=== PATIENT | male | born 1985 | race Caucasian/White ===

== ENCOUNTER 2020-10-03 20:43 | Emergency (ER) | payer MEDICAID, OTHER ==
--- NOTE | 2020-10-03 21:06 | EDM.PDOC ---
ED HPI GENERAL MEDICAL PROBLEM - General Stated Complaint: FISHHOOK IN HAND Time Seen by Provider: 10/03/20 21:02 Source of Information: Reports: Patient History Limitations: Reports: No Limitations - History of Present Illness INITIAL COMMENTS - FREE TEXT/NARRATIVE: Ha has a fish hook lodged in the right pinky finger. Review of Systems - Review of Systems Review Of Systems: Comprehensive ROS is negative, except as noted in HPI. ED EXAM, GENERAL - Physical Exam Exam: See Below Free Text/Narrative:: Fish hook ( with juancarlos-)noted right proximal phalanx ED TRAUMA EXTREMITY PROCEDURES - Foreign Body Removal Indication:: Fish hook Consent Obtained: Patient Performing Doctor:: Alcon Davidson Anesthesia Type: Local Anesthesia Other:: Local Findings:: Fish hook removed by 'shoe string' technique Complications:: No Departure - Departure Time of Disposition: 21:05 Disposition: Home, Self-Care 01 Condition: Good Clinical Impression: Fish hook injury of finger - Discharge Information - Problem List & Annotations (1) Fish hook injury of finger SNOMED Code(s): 29968982 Code(s): S69.90XA - UNSP INJURY OF UNSP WRIST, HAND AND FINGER(S), INIT ENCNTR Status: Acute Qualifiers: Encounter type: initial encounter Laterality: right Qualified Code(s): S69.91XA - Unspecified injury of right wrist, hand and finger(s), initial encounter - Problem List Review Problem List Initiated/Reviewed/Updated: Yes - Assessment/Plan Plan: Dtap given. Dressing ,wound care instructions
[2020-10-03] MEDS ORDERED: Diphtheria,Pertussis(Acell),Tetanus Vaccine 0.5 ML Syringe IM ONE (21:12)
[2020-10-03] MEDS ORDERED: Diphtheria,Pertussis(Acell),Tetanus Vaccine 0.5 ML Syringe ONE (21:12)
--- NOTE | 2020-10-15 08:20 | ER ---
DATE SEEN: 10/03/2020 ADDENDUM: PHYSICAL EXAMINATION: VITAL SIGNS: Blood pressure is 104/83, temperature is 97.6, pulse is 88. GENERAL: He is anxious and has odor of alcohol about him. EXTREMITIES: On the right pinky finger, he has barbed fish hook that is lodged in the middle phalanx. /[id number] JOSIE/CHARLEEN
== END 2020-10-03 21:35 | disposition home or self-care (01) ==
LOC: FB.ED 20:43
DX: S61.246A Puncture wound with foreign body of right little finger without damage to nail, initial encounter (principal); Z23 Encounter for immunization; W22.8XXA Striking against or struck by other objects, initial encounter
CPT/HCPCS: 90471; 90715; 99282; 99283

== ENCOUNTER 2021-01-05 22:08 | Emergency (ER) | payer OTHER ==
[2021-01-05] MEDS ORDERED: traMADol 50 MG Tab PO STA (22:23)
[2021-01-05] MEDS ORDERED: Ketorolac 30 MG/ML SDV IM STA (22:23)
--- NOTE | 2021-01-05 22:32 | EDM.PDOC ---
ED HPI GENERAL MEDICAL PROBLEM - General Stated Complaint: SOFTBALL INJURY RIGHT LEG Time Seen by Provider: 01/05/21 22:15 Source of Information: Reports: Patient, Family History Limitations: Reports: No Limitations - History of Present Illness INITIAL COMMENTS - FREE TEXT/NARRATIVE: Patient presented to the ED because of Injury to the right thigh while playing baseball. Somebody kneed his right thigh and now c/o 10/10 pain although he was able to walk but with so much pain. Right Leg Pain Score (Numeric/FACES): 10 - Related Data Allergies Allergy/AdvReac Type Severity Reaction Status Date / Time Penicillins Allergy Itching Verified 10/04/20 00:50 and Raspy Throat Home Meds: Home Meds NK [No Known Home Meds] 10/04/20 [History] Past Medical History Psychiatric History: Reports: Panic Attack - Past Surgical History GI Surgical History: Reports: Other (See Below) Other GI Surgeries/Procedures: States history of hernia surgery. Musculoskeletal Surgical History: Reports: Shoulder Surgery, Other (See Below) Other Musculoskeletal Surgeries/Procedures:: States history of right shoulder surgery. ED ROS GENERAL - Review of Systems Review Of Systems: See Below Constitutional: Reports: No Symptoms HEENT: Reports: No Symptoms Respiratory: Reports: No Symptoms Cardiovascular: Reports: No Symptoms Endocrine: Reports: No Symptoms GI/Abdominal: Reports: No Symptoms : Reports: No Symptoms Musculoskeletal: Reports: Leg Pain Skin: Reports: No Symptoms Neurological: Reports: No Symptoms Psychiatric: Reports: No Symptoms ED EXAM,LOWER BACK PAIN/INJURY - Physical Exam Exam: See Below Exam Limited By: No Limitations General Appearance: Alert, No Apparent Distress Eye Exam: Bilateral Eye: PERRL Ears: Normal External Exam, Normal Canal Nose: Normal Inspection, Normal Mucosa, No Blood Throat/Mouth: Normal Inspection, Normal Lips Head: Atraumatic, Normocephalic Neck: Normal Inspection, Supple, Non-Tender, Full Range of Motion Respiratory/Chest: No Respiratory Distress, Lungs Clear, Normal Breath Sounds, No Accessory Muscle Use, Chest Non-Tender Cardiovascular: Normal Peripheral Pulses, Regular Rate, Rhythm, No Edema, No Gallop, No JVD, No Murmur, No Rub Back Exam: Normal Inspection, Full Range of Motion Extremities: Normal Inspection, Normal Range of Motion, Non-Tender, Limited Range of Motion, Other (tenderness to the mid right thigh) Course - Vital Signs Text/Narrative:: xray rt m thight- Toradol 60 mg IM x1 Tramadol 100 mg PO x1 Last Recorded V/S: Last Vital Signs Temp 36.8 C 01/05/21 22:28 Pulse 75 01/05/21 22:28 Resp 18 01/05/21 22:28 BP 120/81 01/05/21 22:28 Pulse Ox 96 01/05/21 22:28 - Orders/Labs/Meds Orders: Active Orders 24 hr Category Date Time Status Femur Min 2V Rt [CR] Stat Exams 01/05/21 22:24 Ordered Meds: Medications Discontinued Medications Generic Name Dose Route Start Last Admin Trade Name Yaakov PRN Reason Stop Dose Admin Ketorolac Tromethamine 60 mg 01/05/21 22:23 Ketorolac 30 Mg/Ml Sdv IM 01/05/21 22:24 NOW STA Tramadol HCl 100 mg 01/05/21 22:23 Tramadol 50 Mg Tab PO 01/05/21 22:24 NOW STA Departure - Departure Time of Disposition: 23:00 Disposition: Home, Self-Care 01 Condition: Good Clinical Impression: Contusion, Musculoskeletal pain of right lower extremity - Discharge Information Instructions: Contusion, [id number], Musculoskeletal Pain Referrals: Ranjan Hopson DO [Primary Care Provider] - Additional Instructions: Please read discharge instructions on musculoskeletal pain and contusion Apply ice Take ibuprofen 800 mg and tylenol 1000 mg every 8 hours as needed for pain Follow up as needed Sepsis Event Note (ED) - Focused Exam Vital Signs: Vital Signs Temp Pulse Resp BP Pulse Ox 01/05/21 22:28 36.8 C 75 18 120/81 96 - My Orders Last 24 Hours: My Active Orders 01/05/21 22:24 Femur Min 2V Rt [CR] Stat - Assessment/Plan Last 24 Hours: My Active Orders 01/05/21 22:24 Femur Min 2V Rt [CR] Stat
--- NOTE | 2021-01-06 10:56 | CR ---
RIGHT FEMUR INDICATION: Right thigh injury. Knee and upper thigh. Four images of the right femur were obtained 01/05/21 - no comparisons. An acute fracture, dislocation, or other significant bone or joint abnormality was not identified. IMPRESSION: Normal appearing right femur. If symptoms persist - if occult fracture site is suspected clinically, reexamination in 10-14 days may be helpful. [facility]
== END 2021-01-05 23:00 | disposition home or self-care (01) ==
LOC: FB.ED 22:08
DX: S70.11XA Contusion of right thigh, initial encounter (principal); M79.661 Pain in right lower leg; Z88.0 Allergy status to penicillin; W50.0XXA Accidental hit or strike by another person, initial encounter; Y93.64 Activity, baseball
CPT/HCPCS: 73552; 96372; 99283; A9270; J1885

== ENCOUNTER 2022-03-31 23:19 | Emergency (ER) | payer OTHER, MEDICAID ==
[2022-04-01] MEDS ORDERED: Ibuprofen 800 MG Tab PO ONE (00:10)
[2022-04-01] MEDS ORDERED: Acetaminophen 500 MG Tab PO ONE (00:10)
== END 2022-04-01 00:46 | disposition home or self-care (01) ==
LOC: FB.ED 23:19
DX: S20.212A Contusion of left front wall of thorax, initial encounter (principal); Z72.0 Tobacco use; Z88.5 Allergy status to narcotic agent; Z88.0 Allergy status to penicillin; Z91.018 Allergy to other foods; V19.9XXA Pedal cyclist (driver) (passenger) injured in unspecified traffic accident, initial encounter; Y93.55 Activity, bike riding; Y92.410 Unspecified street and highway as the place of occurrence of the external cause
CPT/HCPCS: 71101; 93005; 99283; A9270